=== PATIENT | male | born 1980 | race Caucasian/White ===

== ENCOUNTER 2022-12-09 15:54 | Emergency (ER) | payer SELFPAY ==
[~2022-12-09] VITALS: Ht 177.8 cm; Wt 59.4 kg
[2022-12-09] MEDS ORDERED: ASPIRIN EC 325 MG TABLET.DR PO ONE (16:17)
[2022-12-09 16:25] VITALS: BP 149/88; TEMP 98.7; O2SAT 98
[2022-12-09] MEDS ORDERED: HEPARIN SODIUM, PORCINE 5000 UNITS/1 ML VIAL IV ONE (16:30)
[2022-12-09] MEDS ORDERED: ASPIRIN 325 MG TABLET PO ONE (16:30)
[2022-12-09 16:35] LABS: BASOPHILS # (AUTO) 0.1 K/uL (0.0-0.2); BASOPHILS % (AUTO) 0.3 % (0.0-2.0); EOSINOPHILS # (AUTO) 0.1 K/uL (0.0-0.7); EOSINOPHILS % (AUTO) 0.9 % (0.0-6.0); HEMATOCRIT 31 % (39-51); HEMOGLOBIN 10.2 g/dL (13.5-17.5); LYMPHOCYTES % (AUTO) 6.5 % (20.0-44.0); MEAN CORPUSCULAR HEMOGLOBIN 31 PG (26.0-33.0); MEAN CORPUSCULAR HGB CONC 33 g/dl (31.0-36.0); MEAN CORPUSCULAR VOLUME 92 fL (80-96); MONOCYTES # (AUTO) 1.6 K/uL (0.1-1.30); MONOCYTES % (AUTO) 9.8 % (2.0-12.0); NEUTROPHILS # (AUTO) 13.3 K/uL (1.8-8.9); NEUTROPHILS % (AUTO) 82.5 % (43.0-81.0); PLATELET COUNT (AUTO) 471 K/uL (150-450); RED BLOOD CELL COUNT(AUTO) 3.35 MIL/uL (4.5-6.0); RED CELL DISTRIBUTION WIDTH 14.2 % (11.5-15.0); WHITE BLOOD COUNT (AUTO) 16.1 K/uL (4.3-11.0)
[2022-12-09 16:53] LABS: CREATININE 0.5 mg/dL (0.6-1.3); GLUCOSE 85 mg/dL (74-106); UREA NITROGEN, BLOOD 7 mg/dL (7-18)
[2022-12-09 17:04] LABS: SODIUM SERUM 165 mmol/L (136-145)
[2022-12-09 17:05] LABS: CALCIUM, SERUM 5.7 mg/dL (8.5-10.1); CARBON DIOXIDE 8 mmol/L (21-32); CHLORIDE 55 mmol/L (98-107); POTASSIUM 2.4 mmol/L (3.5-5.1)
== END 2022-12-09 16:39 | disposition short-term general hospital (02) ==
LOC: ER 15:54
DX: I21.3 ST elevation (STEMI) myocardial infarction of unspecified site (principal); Z60.2 Problems related to living alone; Z88.0 Allergy status to penicillin
CPT/HCPCS: 99285; 96374; 93005 ×4; 85025; 80048; 36415; 84484; J1644